=== PATIENT | female | born 1945 | race Caucasian/White ===

== ENCOUNTER 2018-06-29 18:03 | Emergency (ER) | payer MEDICARE, SELFPAY ==
[2018-06-29 18:04] VITALS: BP 139/80; PULSE 93; RESP 16; TEMP 36.5; BMI 20.1
--- NOTE | 2018-06-29 18:29 | US_ITS ---
STUDY: VENOUS DOPPLER ULTRASOUND - BILATERAL LOWER EXTREMITIES REASON FOR EXAM: Female, 72 years old. Left lower leg pain. TECHNIQUE: Ultrasound evaluation of the deep vein system to include cochran-scale imaging and compression was performed. Cochran-scale imaging and Doppler sonographic evaluation, including duplex spectral analysis and qualitative color flow sonography, was performed. COMPARISON: None. FINDINGS: RIGHT LEG Common Femoral Vein: Normal compression, spontaneity and augmentation. Normal color Doppler. Common Femoral Vein/Greater Saphenous Junction: Proper compression without internal echoes are present. Deep Femoral Vein: Normal compression, spontaneity and augmentation. Normal color Doppler. Femoral Proximal: Proper compression without internal echoes are present. Femoral Middle: Normal compression, spontaneity and augmentation. Normal color Doppler. Femoral Distal: Proper compression without internal echoes are present. Popliteal Vein: Normal compression, spontaneity and augmentation. Normal color Doppler. Posterior Tibial Vein: Proper compression without internal echoes are present. Peroneal Vein: Proper compression without internal echoes are present. LEFT LEG Common Femoral Vein: Lack of compression with noted internal echoes are present. Common Femoral Vein/Greater Saphenous Junction: Lack of compression with noted internal echoes are present. Deep Femoral Vein: Lack of compression with noted internal echoes are present. Femoral Proximal: Lack of compression with noted internal echoes are present. Femoral Middle: Normal compression, spontaneity and augmentation. Normal color Doppler. Femoral Distal: Lack of compression with noted internal echoes are present. Popliteal Vein: Lack of compression with noted internal echoes are present. Posterior Tibial Vein: Lack of compression with noted internal echoes are present. Peroneal Vein: Lack of compression with noted internal echoes are present. US/Venous Duplex Imag/Juan Extrem IMPRESSION: 1. Large deep venous thrombosis extending throughout the left leg from the CFV to the distal popliteal and proximal calf veins. Electronically Signed: Martin Benitez DO at 19:59 EDT , Service support ,
--- NOTE | 2018-06-29 18:56 | EKG12_ITS ---
Test Reason : BLOOD CLOT Blood Pressure : / mmHG Vent. Rate : 089 BPM Atrial Rate : 089 BPM P-R Int : 156 ms QRS Dur : 078 ms QT Int : 368 ms P-R-T Axes : 041 025 034 degrees QTc Int : 447 ms Normal sinus rhythm Low voltage QRS Borderline ECG Confirmed by IGOR JIMÉNEZ, TIMOTHY ([id number]), make up editor LANG QUINONES ([id number]) on 07/06/2018 2:22:31 PM Referred By: DR FRANCOIS Confirmed By:TIMOTHY COSTA MD
--- NOTE | 2018-06-29 19:25 | NURSING ---
DR. CHAU PAGED FOR DR. FRANCOIS @[id number].
[2018-06-29 19:31] LABS: Absolute Lymphocyte Count 1.19 X10^3/ul (0.83-4.51); Absolute Neutrophil Count 4.4 X10^3/uL (2.0-7.7); Eosinophil# 0.19 X10^3/uL; Eosinophils% 2.9 % (0-5); Hematocrit 34.4 % (37-47); Hemoglobin 10.5 g/dl (12.0-15.0); Lymphocyte # 1.19 X10^3/ul (4.0); Lymphocyte % 18.4 % (19-41); Mean Corp Hgb Conc 30.5 g/gl (32-36); Mean Corpuscular Hgb 26.1 pg (27.0-32.0); Mean Corpuscular Volume 85.6 fL (81-99); Mean Platelet Vol. 11.6 fl (6.2-12.0); Monocyte# 0.68 X10^3/uL; Monocyte% 10.5 % (0-10); Neutrophil # 4.39 X10^3/uL (2.7-7.7); Platelet Count 241 K/mm3 (150-450); RBC Distribution Width CV 14.9 % (11.6-14.6); Red Blood Count 4.02 M/mm3 (4.2-5.4); White Blood Count 6.5 K/mm3 (4.4-11.0)
[2018-06-29 19:35] LABS: POSITIVE COUNT NO; POSITIVE DIFFERENTIAL NO; POSITIVE MORPHOLOGY NO
[2018-06-29 19:37] LABS: Anion Gap 9 (5-15); BUN 14 mg/dL (7-18); BUN/Creat Ratio 19.2 RATIO (10-20); Calcium,Total 8.4 mg/dL (8.5-10.1); Chloride 106 mmol/L (98-107); Creatinine, Serum 0.73 mg/dL (0.55-1.02); EST Glomerular Filtration Rate 83 mL/min (>60); Est Glom Filt Rate - Afr Amer 100 mL/min (>60); Estimated Creatinine Clearance 38.96 ml/min; Glucose 125 mg/dL (74-106); Sodium Level 143 mmol/L (136-145)
[2018-06-29 19:39] LABS: International Normalized Ratio 1.1
[2018-06-29 19:40] LABS: Partial Thromboplast Time 27.2 Seconds (24.1-36.2)
[2018-06-29 20:07] VITALS: BMI 20.2
--- NOTE | 2018-06-29 20:33 | ED.VISSUMM ---
- ER Visit Summary Date of Service: 06/29/18 Chief Complaint: Leg pain History of Present Illness: The patient is a 72 F with left leg pain and swelling for several days. Patient has a home nurse 3 times a week and they were concerned for DVT. Patient has no history of DVT. No chest pain, shortness of breath, cough, or bleeding. No history of bleeding. No history of regular alcohol use. No history of uncontrolled blood pressure. She does take aspirin. No history of malignancy, recent surgery, immobilization, or hormone use. Physical Examination: Afebrile and vital signs unremarkable. Patient alert. No acute distress. Heart regular rate and rhythm. Lungs clear. Extremities show left-sided edema and blanching erythema. Pulses are intact distally. Joints show good range of motion. No deformities. Test Results: EKG showed sinus rhythm at a rate of 89. Hemoglobin 10.5 down from 12 several years ago. BMP normal. INR and PTT normal. Ultrasound of her left leg shows an extensive DVT from the common femoral vein to the lower leg distally. Emergency Department Course and Treatment: Patient has a has bled score of 2. She was discussed with the hospitalist and the furniture assembler and installer on-call. I thought that because of her extensive DVT she should be admitted. They advised that this does not require admission. They were not concerned for precipitating an embolus with starting anticoagulation. I discussed this with the family. The family and the patient would like to go home. She has a nurse 3 times a week that can help her. She also has someone that helps daily with her food and medications. She had slid out of her chair recently, but does not fall frequently. No history of GI bleeding, aneurysm. No history of head injuries or surgeries. Patient will be started on Xarelto 15 mg twice a day for 21 days. She will follow-up with her primary doctor for further treatment. I did speak with Dr. Feliz by telephone. The patient falls or has any bleeding or any issues like chest pain or shortness of breath, she should return right away. Call 911. Do not delay. Treatment Plan: As above Disposition: Discharged Impression: 1. Left leg DVT This note was generated with [employer] software. It may contain incorrect words, spelling, and punctuation that were not noted in review of the chart prior to signing ED Disposition - Plan for ED Patient: Chief Complaint: Lower Extremity Injury Referrals: [facility] Doctor,Out of [Primary Care Provider] -
[2018-06-29 20:35] VITALS: BP 133/78; PULSE 85; RESP 14; O2SAT 98
--- NOTE | 2018-06-29 20:39 | DCINST.ED_ITS ---
ED Disposition - Plan for ED Patient: Chief Complaint: Lower Extremity Injury Instructions: ED DVT Prescriptions: Rivaroxaban [Xarelto] 15 mg PO BID #[id number] tab Referrals: Cesar Feliz [Family Provider] - Additional Instructions: Return right away, call 911, for chest pain, shortness of breath, cough, or bleeding. He may take Tylenol for pain. Do not take Motrin, Aleve, or anti- inflammatories as they can increase your risk of bleeding.
[2018-06-29] MEDS: Rivaroxaban 15 MG Tablet PO (21:01)
--- NOTE | 2018-06-30 12:44 | PN ---
Patient''s son, Dany Holman, called wondering why the ED sent his mother home with a blood clot last night (06-29-18) He stated he was not with her, but is in town now. He is her POA - health and financial. He wondered if she should be brought back into the ED today. I have spoken to Magda Vee, and she will investigate and call the son at [phone]
== END 2018-06-29 21:06 | disposition home or self-care (01) ==
LOC: ED 19:18
PROVIDERS: Emergency Provider Emergency Medicine; Family Provider Family Medicine; PCP Family Medicine
DX: I82.412 Acute embolism and thrombosis of left femoral vein (principal); Z79.82 Long term (current) use of aspirin; E11.9 Type 2 diabetes mellitus without complications; F03.90 Unspecified dementia, unspecified severity, without behavioral disturbance, psychotic disturbance, mood disturbance, and anxiety
CPT/HCPCS: 80048; 85025; 85610; 85730; 93005; 93970; 99285